=== PATIENT | female | born 1955 | race American Indian/Alaskan Native ===

== ENCOUNTER 2016-06-07 06:01 | Day surgery (SDC) | payer OTHER ==
[2016-06-07] MEDS ORDERED: ECOTRIN PO ONE (06:24)
[2016-06-07 06:58] LABS: Basophils % (Auto) 0.4 % (0.0-1.8); Eosinophils % (Auto) 0.7 % (0.0-4.3); Hematocrit 40.1 % (30.3-42.9); Hemoglobin 13.3 gm/dl (10.1-14.3); Mean Corpuscular HGB Conc 33 % (30-34); Mean Corpuscular Hemoglobin 30 pg (28-32); Mean Corpuscular Volume 91 fl (79-97); Platelet Count 119 K/mm3 (140-440); Red Blood Count 4.39 M/mm3 (3.65-5.03); Red Cell Distribution Width 14.8 % (13.2-15.2); White Blood Count 4.5 K/mm3 (4.5-11.0)
[2016-06-07] MEDS ORDERED: NACL 0.9% 500 ML 500 ML IV SCH (07:00)
[2016-06-07 07:08] LABS: Anion Gap 17 mmol/L; BUN/Creatinine Ratio 18.57; Blood Urea Nitrogen 13 mg/dL (7-17); Calcium 9.1 mg/dL (8.4-10.2); Carbon Dioxide 24 mmol/L (22-30); Chloride 99.9 mmol/L (98-107); Glucose 96 mg/dL (65-100); INR 1.05 (0.87-1.13); Potassium 4.3 mmol/L (3.6-5.0); Sodium 137 mmol/L (137-145)
[2016-06-07] MEDS ORDERED: HEPARIN/NS 5000 UNIT/500ML(CATH LAB) 1,500 ML IR ONE (09:09)
[2016-06-07] MEDS ORDERED: NITROGLYCERIN SYRINGE 3 ML ONE (09:10)
[2016-06-07] MEDS: SUBLIMAZE ONE ×2 (09:39→09:55)
[2016-06-07] MEDS: VERSED ONE ×2 (09:40→09:55)
[2016-06-07] MEDS: HEPARIN 10,000 UNITS/10 ML ONE ×2 (09:41→10:14)
[2016-06-07] MEDS: XYLOCAINE 2% INFILTRATI ONE ×2 (09:41→10:14)
[2016-06-07] MEDS: CALAN ONE ×2 (09:41→10:14)
[2016-06-07] MEDS ORDERED: NACL 0.9% 500 ML 500 ML ONE (10:45)
--- NOTE | 2016-06-07 11:01 | Short Stay Summary ---
Short Stay Documentation Date of service: 06/07/16 - History H&P: obtained from office - Allergies and Medications Current Medications: Allergies No Known Allergies Allergy (Verified 02/19/16 06:31) Home Medications Medication Instructions Recorded Confirmed Last Taken Type Furosemide [Lasix] 20 mg PO QDAY #30 tablet 02/19/16 06/07/16 Unknown Rx Lisinopril [Zestril TAB] 5 mg PO QDAY #31 tablet 02/19/16 06/07/16 06/06/16 Rx Aspirin [Aspirin TAB] 325 mg PO ONCE 06/07/16 06/07/16 06/06/16 History Carvedilol [Coreg] 3.125 mg PO BID 06/07/16 06/07/16 06/06/16 History Active Medications Sodium Chloride (Nacl 0.9% 500 Ml) 500 mls @ 50 mls/hr IV DIRECT BLANCA Stop: 06/07/16 16:59 Last Admin: 06/07/16 06:51 Dose: 50 mls/hr - Physical exam General appearance: no acute distress Integumentary: no rash HEENT: Atraumatic Lungs: Clear to auscultation Breasts: deferred Heart: Regular rate, Murmur Gastrointestinal: normal Female Genitourinary: deferred Rectal Exam: deferred Extremities: no ischemia Neurological: Normal gait - Brief post op/procedure progress note Date of procedure: 06/07/16 Pre-op diagnosis: Severe MR Post-op diagnosis: same Procedure: LHC, RHC, LV gram Anesthesia: MAC Findings: Severe MR and MS Surgeon: ALVIN LIM Estimated blood loss: none Pathology: none Condition: stable - Hospital course Hospital course: Uneventful - Disposition Condition at discharge: Good Disposition: DISCHARGED TO HOME OR SELFCARE Short Stay Discharge Plan Activity: advance as tolerated Weight Bearing Status: Partial Weight Bearing Diet: low fat, low cholesterol, low salt Follow up with: AMARILIS BAE MD [Primary Care Provider] - 7 Days
--- NOTE | 2016-06-07 12:36 | Cardiac Catherization Report ---
LEFT AND RIGHT HEART CATHETERIZATION INDICATION FOR THE PROCEDURE: Severe mitral regurgitation and moderate mitral stenosis. ORDERING PHYSICIAN: SUAD PAL MD PROCEDURES PERFORMED: 1. Selective left and right coronary angiography. 2. Left ventriculography. 3. Right heart catheterization with hemodynamic measurement oxygen saturation run. DESCRIPTION OF PROCEDURE: After obtaining written consent and after documenting a good Mick test in the right extremity, the patient was draped using sterile technique. A 2% lidocaine was injected into the right wrist. A 5-Monegasque vascular sheath was inserted into the right radial artery. A 6-Monegasque vascular sheath was inserted into the right antecubital fossa at the site of a previous intravenous catheter insertion. A 5-Monegasque [place]-Jimena catheter was used to measure right-sided hemodynamics. A 5-Monegasque pigtail catheter was used to perform a left ventriculogram and measured simultaneously the gradient between the pulmonary capillary wedge pressure and the left ventricular end-diastolic pressure. A 5-Monegasque Wilmot catheter was used to selectively engage the left coronary artery. A 5-Monegasque JR4 catheter was used to selectively engage the right coronary artery. No complications occurred during the procedure. Hemostasis was achieved at the end of the procedure using manual pressure. SPECIMEN REMOVED: None. ESTIMATED BLOOD LOSS: Minimal. FINDINGS: 1. The mean pulmonary capillary wedge pressure was 16 mmHg. 2. The mean pulmonary artery pressure was 22 mmHg. The pulmonary artery systolic pressure was 30 mmHg with a pulmonary artery diastolic pressure of 12 mmHg. The left ventricular end-diastolic pressure was 12 mmHg. The mean gradient across the pulmonary capillary wedge pressure and the mean gradient between the pulmonary capillary wedge pressure and the left ventricular end-diastolic pressure was 16.6 mmHg with a mitral valve area calculated at 1.7 cm2. 3. The right ventricular systolic pressure was 49 mmHg with a right ventricular end-diastolic pressure of 12 mmHg. 4. The mean right arterial pressure was 8 mmHg. 5. The Carroll cardiac output was 5.73 L per minute with a cardiac index of 3.06 L per minute per meter square. 6. The right ventricular saturation was 58%. 7. The right atrial saturation was 61%. 8. The pulmonary artery saturation was 62%. 9. The superior vena cava saturation was 68%. 10. The left ventricular saturation was 85%. CARDIAC STRUCTURES: The left ventricle is normal in size and systolic function, the left ventricular ejection fraction is estimated at 60%. There is evidence of severe mitral regurgitation noted on the left ventriculogram. CORONARY ANATOMY: 1. This is a right dominant circulation. 2. The left main is angiographically normal. 3. The LAD is angiographically normal. 4. The left circumflex artery is angiographically normal. 5. The right coronary artery is angiographically normal. IMPRESSION: 1. Angiographically normal coronary arteries. 2. Normal left ventricular size and systolic function. 3. Severe mitral regurgitation. 4. Evidence of severe mitral stenosis by gradient across the pulmonary capillary wedge pressure and the left ventricular end-diastolic pressure. The mean gradient was measured at 16.6 mmHg with a mitral valve area of 1.27 cm2. 5. There is a mild gradient between the right ventricular systolic pressure and a pulmonary artery systolic pressure ranging between 15 to 19 mmHg. 6. There is normal cardiac output and cardiac index. 7. There is no evidence of an intracardiac shunt. RECOMMENDATIONS: Proceed with mitral valve repair or replacement. [facility]# [id number] PATO/SEVERINO
[2016-06-07 13:22] VITALS: BP 133/78
== END 2016-06-07 13:45 | disposition home or self-care (01) ==
LOC: OPU 06:01
PROVIDERS: ATTEND Internal Medicine
DX: I05.2 Rheumatic mitral stenosis with insufficiency (principal); Z79.01 Long term (current) use of anticoagulants
CPT/HCPCS: 36415; 80048; 85025; 85610; 85730; 93005; 93010; 93460; C1769; C1887; C1894; J1644; J2250; J3010; J7040; Q9967

== ENCOUNTER 2018-09-04 11:13 | Emergency (ER) | payer OTHER ==
[2018-09-04 11:34] VITALS: BP 159/99
--- NOTE | 2018-09-04 11:35 | Event Note ---
ED Screening Note ED Screening Note: states she had lab drawn at her heart clinic and was advised to be seen in the ED for hyperglycemia never had high blood sugar before states that she has had increased thirst and dry mouth no CP or SOB no N/V/D PSHx CABG former smoker, quit 2 years ago former drinker, quit 2 years ago This initial assessment/diagnostic orders/clinical plan/treatment(s) is/are subject to change based on patients health status, clinical progression and re- assessment by fellow clinical providers in the ED. Further treatment and workup at subsequent clinical providers discretion. Patient/guardian urged not to elope from the ED as their condition may be serious if not clinically assessed and managed. Initial orders include: labs, UA
[2018-09-04 12:11] LABS: Basophils % (Auto) 0.6 % (0.0-1.8); Hematocrit 40.4 % (30.3-42.9); Hemoglobin 13.3 gm/dl (10.1-14.3); Lymphocytes # (Auto) 1.1 K/mm3 (1.2-5.4); Lymphocytes % (Auto) 41.4 % (13.4-35.0); Mean Corpuscular HGB Conc 33 % (30-34); Mean Corpuscular Volume 89 fl (79-97); Monocytes # (Auto) 0.3 K/mm3 (0.0-0.8); Monocytes % (Auto) 11.9 % (0.0-7.3); Platelet Count 118 K/mm3 (140-440); Red Blood Count 4.51 M/mm3 (3.65-5.03); Red Cell Distribution Width 14.9 % (13.2-15.2)
[2018-09-04 12:36] LABS: Albumin 3.8 g/dL (3.9-5); BUN/Creatinine Ratio 10; Blood Urea Nitrogen 7 mg/dL (7-17); Calcium 8.8 mg/dL (8.4-10.2); Hemolysis Index 96
[2018-09-04 13:03] LABS: Alanine Aminotransferase 18 units/L (7-56)
--- NOTE | 2018-09-04 14:39 | Emergency Department Report ---
ED General Adult HPI - General Chief complaint: Hyperglycemia Stated complaint: DR MATIAS/HIGH DIABETIC BLOOD LEVEL Time Seen by Provider: 09/04/18 11:32 Source: patient Mode of arrival: Ambulatory Limitations: No Limitations - History of Present Illness Initial comments: is a 62 yo female with hx of CAD s/p CABG, HTN who presents with elevated blood sugar on routine labs obtained by esl instructor. Yesterday she had blood draw routine at esl instructor's office. Her blood sugar was greater than 400. It was a nonfasting level. The blood draw occurred in the evening after eating a meAL. No previous history of diabetes. She has a PCP in [place]. She has been thirsty. Otherwise no symptoms. -: Gradual, unknown Consistency: constant Improves with: none Worsens with: none Associated Symptoms: other (thirst) - Related Data Home Medications Medication Instructions Recorded Confirmed Last Taken Aspirin 325 mg PO ONCE 06/07/16 06/07/16 06/06/16 Carvedilol [Coreg] 3.125 mg PO BID 06/07/16 06/07/16 06/06/16 Previous Rx's Medication Instructions Recorded Last Taken Type Furosemide [Lasix TAB] 20 mg PO QDAY #30 tablet 02/19/16 Unknown Rx Lisinopril [Zestril TAB] 5 mg PO QDAY #31 tablet 02/19/16 06/06/16 Rx metFORMIN [Glucophage] 500 mg PO BID 30 Days #60 tablet 09/04/18 Unknown Rx Allergies Allergy/AdvReac Type Severity Reaction Status Date / Time No Known Allergies Allergy Verified 09/04/18 11:15 ED Review of Systems ROS: Stated complaint: DR MATIAS/HIGH DIABETIC BLOOD LEVEL Other details as noted in HPI Comment: All other systems reviewed and negative Constitutional: denies: fever, malaise Respiratory: denies: cough Cardiovascular: denies: chest pain Endocrine: increased thirst ED Past Medical Hx - Past Medical History Previous Medical History?: Yes Hx Hypertension: Yes Hx Heart Attack/AMI: No Hx Congestive Heart Failure: Yes Hx Diabetes: No - Surgical History Hx Pacemaker: No Hx Cholecystectomy: Yes Additional Surgical History: left foot surgery ,HYSTERECTOMY - Social History Smoking Status: Former Smoker Substance Use Type: None - Medications Home Medications: Home Medications Medication Instructions Recorded Confirmed Last Taken Type Furosemide [Lasix TAB] 20 mg PO QDAY #30 tablet 02/19/16 06/07/16 Unknown Rx Lisinopril [Zestril TAB] 5 mg PO QDAY #31 tablet 02/19/16 06/07/16 06/06/16 Rx Aspirin 325 mg PO ONCE 06/07/16 06/07/16 06/06/16 History Carvedilol [Coreg] 3.125 mg PO BID 06/07/16 06/07/16 06/06/16 History metFORMIN [Glucophage] 500 mg PO BID 30 Days #60 tablet 09/04/18 Unknown Rx ED Physical Exam - General Limitations: No Limitations General appearance: alert, in no apparent distress - Head Head exam: Present: atraumatic, normocephalic - Eye Eye exam: Present: normal appearance - ENT ENT exam: Present: mucous membranes moist - Neck Neck exam: Present: normal inspection, full ROM - Respiratory Respiratory exam: Present: normal lung sounds bilaterally. Absent: respiratory distress, wheezes - Cardiovascular Cardiovascular Exam: Present: regular rate, normal rhythm, normal heart sounds. Absent: systolic murmur, diastolic murmur, rubs, gallop - GI/Abdominal GI/Abdominal exam: Present: soft, normal bowel sounds. Absent: distended, tenderness, guarding, rebound - Extremities Exam Extremities exam: Present: normal inspection - Back Exam Back exam: Present: normal inspection - Neurological Exam Neurological exam: Present: alert, oriented X3 - Psychiatric Psychiatric exam: Present: normal affect, normal mood - Skin Skin exam: Present: warm, dry, intact, normal color. Absent: rash ED Course Vital Signs 09/04/18 11:33 Temperature 97.5 F L Pulse Rate 119 H Respiratory 18 Rate Blood Pressure 159/99 O2 Sat by Pulse 98 Oximetry ED Medical Decision Making - Lab Data Result diagrams: 09/04/18 11:52 09/04/18 11:52 - Medical Decision Making Mrs. Alaniz presents with new onset diabetes. She was given metformin. She was given a referral outpatient physician. She stated that she no longer wanted to travel to [place] or primary care. Critical care attestation.: If time is entered above; I have spent that time in minutes in the direct care of this critically ill patient, excluding procedure time. ED Disposition Clinical Impression: New onset type 2 diabetes mellitus, Acute hyperglycemia Disposition: DC-01 TO HOME OR SELFCARE Is pt being admited?: No Does the pt Need Aspirin: No Condition: Stable Instructions: Diabetes Mellitus Type 2 in Adults (ED) Prescriptions: metFORMIN [Glucophage] 500 mg PO BID 30 Days #60 tablet Referrals: BOYD WRIGHT MD [Staff Physician] - 3-5 Days CINTIA HARRIS MD [Staff Physician] - 3-5 Days JIGAR GONZALEZ JR, MD [Staff Physician] - 3-5 Days Forms: Work/School Release Form(ED)
== END 2018-09-04 14:57 | disposition home or self-care (01) ==
LOC: ED 11:13
DX: E11.65 Type 2 diabetes mellitus with hyperglycemia (principal); I11.0 Hypertensive heart disease with heart failure; I50.9 Heart failure, unspecified; Z90.49 Acquired absence of other specified parts of digestive tract; Z98.890 Other specified postprocedural states; Z90.710 Acquired absence of both cervix and uterus; Z87.891 Personal history of nicotine dependence; Z79.82 Long term (current) use of aspirin; Z79.899 Other long term (current) drug therapy
CPT/HCPCS: 36415; 80053; 82962; 85025; 99283

== ENCOUNTER 2019-03-04 16:31 | Emergency (ER) | payer OTHER ==
--- NOTE | 2019-03-04 17:18 | Event Note ---
ED Screening Note ED Screening Note: SENT BY FOR INC COUMADIN PT KEEPS REFERENCING HER BLOOD GLUCOSE BUT SHE HAS PAPER WORK IN HER PURSE STATE S INR IS 9 PT NEEDS EDUCATED NO BLEEDING TO MAIN COUMADIN---2 VALVES- GOAL 2.5-3.5 This initial assessment/diagnostic orders/clinical plan/treatment(s) is/are subject to change based on patients health status, clinical progression and re- assessment by fellow clinical providers in the ED. Further treatment and workup at subsequent clinical providers discretion. Patient/guardian urged not to elope from the ED as their condition may be serious if not clinically assessed and managed. Initial orders include: LABS UA WILL NEED ADMITTED ?VITK/FFP OR DRIFT
[2019-03-04 17:50] LABS: Basophils % (Auto) 0.6 % (0.0-1.8); Eosinophils % (Auto) 1.2 % (0.0-4.3); Hematocrit 37.2 % (30.3-42.9); Hemoglobin 12.3 gm/dl (10.1-14.3); Lymphocytes # (Auto) 1.7 K/mm3 (1.2-5.4); Lymphocytes % (Auto) 39.9 % (13.4-35.0); Mean Corpuscular HGB Conc 33 % (30-34); Mean Corpuscular Volume 85 fl (79-97); Monocytes # (Auto) 0.4 K/mm3 (0.0-0.8); Monocytes % (Auto) 8.9 % (0.0-7.3); Platelet Count 142 K/mm3 (140-440); Red Blood Count 4.38 M/mm3 (3.65-5.03); Red Cell Distribution Width 15.1 % (13.2-15.2)
[2019-03-04 18:08] LABS: Alanine Aminotransferase 14 units/L (7-56); Albumin 4.2 g/dL (3.9-5); BUN/Creatinine Ratio 19; Blood Urea Nitrogen 15 mg/dL (7-17); Calcium 9.3 mg/dL (8.4-10.2); Hemolysis Index 10
--- NOTE | 2019-03-04 18:11 | Emergency Department Report ---
ED General Adult HPI - General Chief complaint: Medical Clearance Stated complaint: ABNORMAL LABS Time Seen by Provider: 03/04/19 17:17 Source: patient Mode of arrival: Ambulatory Limitations: No Limitations - History of Present Illness Initial comments: Patient is a 63-year-old female presents emergency room with complaints of abnormal labs. She states that she went to her [employer]'s office Dr. Bustamante at [facility] to have her Coumadin levels drawn. It appears that her INR level was 8.0 at the [employer]'s office. She was advised to be seen in the emergency Department due to her levels being too high. She denies any symptoms at all. She denies any bleeding. She denies any chest pain, shortness of breath, palpitations, hematochezia, melena, hematemesis. She states that she takes Coumadin twice a day but does not know how much she takes. She states that she has a history of a flutter and had open heart surgery in to replace one of her valves with a pig valve. - Related Data Home Medications Medication Instructions Recorded Confirmed Last Taken Aspirin 325 mg PO ONCE 06/07/16 06/07/16 06/06/16 carvediloL [Coreg] 3.125 mg PO BID 06/07/16 06/07/16 06/06/16 Previous Rx's Medication Instructions Recorded Last Taken Type Furosemide [Lasix TAB] 20 mg PO QDAY #30 tablet 02/19/16 Unknown Rx lisinopriL [Zestril TAB] 5 mg PO QDAY #31 tablet 02/19/16 06/06/16 Rx metFORMIN [Glucophage] 500 mg PO BID 30 Days #60 tablet 09/04/18 Unknown Rx Allergies Allergy/AdvReac Type Severity Reaction Status Date / Time No Known Allergies Allergy Verified 09/04/18 11:15 ED Review of Systems ROS: Stated complaint: ABNORMAL LABS Other details as noted in HPI Comment: All other systems reviewed and negative ED Past Medical Hx - Past Medical History Hx Hypertension: Yes Hx Heart Attack/AMI: No Hx Congestive Heart Failure: Yes Hx Diabetes: No - Surgical History Hx Pacemaker: No Hx Cholecystectomy: Yes Additional Surgical History: left foot surgery ,HYSTERECTOMY - Social History Smoking Status: Never Smoker Substance Use Type: None - Medications Home Medications: Home Medications Medication Instructions Recorded Confirmed Last Taken Type Furosemide [Lasix TAB] 20 mg PO QDAY #30 tablet 02/19/16 06/07/16 Unknown Rx lisinopriL [Zestril TAB] 5 mg PO QDAY #31 tablet 02/19/16 06/07/16 06/06/16 Rx Aspirin 325 mg PO ONCE 06/07/16 06/07/16 06/06/16 History carvediloL [Coreg] 3.125 mg PO BID 06/07/16 06/07/16 06/06/16 History metFORMIN [Glucophage] 500 mg PO BID 30 Days #60 tablet 09/04/18 Unknown Rx ED Physical Exam - General Limitations: No Limitations General appearance: alert, in no apparent distress - Head Head exam: Present: atraumatic, normocephalic - Eye Eye exam: Present: normal appearance - ENT ENT exam: Present: mucous membranes moist - Respiratory Respiratory exam: Present: normal lung sounds bilaterally. Absent: respiratory distress, wheezes, rales, rhonchi, stridor, chest wall tenderness, accessory muscle use, decreased breath sounds, prolonged expiratory - Cardiovascular Cardiovascular Exam: Present: regular rate, normal rhythm, normal heart sounds. Absent: systolic murmur, diastolic murmur, rubs, gallop - Neurological Exam Neurological exam: Present: alert, oriented X3 - Psychiatric Psychiatric exam: Present: normal affect, normal mood - Skin Skin exam: Present: warm, dry, intact ED Course Vital Signs 03/04/19 03/04/19 17:01 18:30 Temperature 98.6 F Pulse Rate 77 Respiratory 17 17 Rate Blood Pressure 183/96 Blood Pressure 179/97 [Left] O2 Sat by Pulse 97 97 Oximetry ED Medical Decision Making - Lab Data Result diagrams: 03/04/19 17:31 03/04/19 17:39 Lab Results 03/04/19 03/04/19 03/04/19 Range/Units 17:31 17:39 17:39 WBC 4.2 L (4.5-11.0) K/mm3 RBC 4.38 (3.65-5.03) M/mm3 Hgb 12.3 (10.1-14.3) gm/dl Hct 37.2 (30.3-42.9) % MCV 85 (79-97) fl MCH 28 (28-32) pg MCHC 33 (30-34) % RDW 15.1 (13.2-15.2) % Plt Count 142 (140-440) K/mm3 Lymph % (Auto) 39.9 H (13.4-35.0) % Ford % (Auto) 8.9 H (0.0-7.3) % Eos % (Auto) 1.2 (0.0-4.3) % Baso % (Auto) 0.6 (0.0-1.8) % Lymph # 1.7 (1.2-5.4) K/mm3 Ford # 0.4 (0.0-0.8) K/mm3 Eos # 0.0 (0.0-0.4) K/mm3 Baso # 0.0 (0.0-0.1) K/mm3 Seg Neutrophils % 49.4 (40.0-70.0) % Seg Neutrophils # 2.1 (1.8-7.7) K/mm3 PT 56.8 H (12.2-14.9) Sec. INR 6.91 H* (0.87-1.13) APTT 107.4 H* (24.2-36.6) Sec. Sodium 138 (137-145) mmol/L Potassium 3.8 (3.6-5.0) mmol/L Chloride 100.4 (98-107) mmol/L Carbon Dioxide 24 (22-30) mmol/L Anion Gap 17 mmol/L BUN 15 (7-17) mg/dL Creatinine 0.8 (0.7-1.2) mg/dL Estimated GFR > 60 ml/min BUN/Creatinine Ratio 19 % Glucose 109 H (65-100) mg/dL Calcium 9.3 (8.4-10.2) mg/dL Total Bilirubin 0.30 (0.1-1.2) mg/dL AST 19 (5-40) units/L ALT 14 (7-56) units/L Alkaline Phosphatase 71 (35-129) units/L Total Protein 7.5 (6.3-8.2) g/dL Albumin 4.2 (3.9-5) g/dL Albumin/Globulin Ratio 1.3 % - Medical Decision Making Patient is a 63-year-old female presents emergency room with complaints of abnormal labs. She states that she went to her [employer] cutter's office Dr. Bustamante at [facility] to have her Coumadin levels drawn. It appears that her INR level was 8.0 at the [employer]'s office. She was advised to be seen in the emergency Department due to her levels being too high. She denies any symptoms at all. She denies any bleeding. She denies any chest pain, shortness of breath, palpitations, hematochezia, melena, hematemesis. She states that she takes Coumadin twice a day but does not know how much she takes. She states that she has a history of a flutter and had open heart surgery in 2017 to replace one of her valves with a pig valve. VSS. given that pt is not having any symptoms/no bleeding no need for vitamin K at this time. INR is 6.91. discussed case with Dr. Benny Cook who recommended having pt hold her coumadin for two days and have her levels retested at her [employer] office. pt given strict fall precautions. advised pt and pts daughter, your coumadin levels were too high today. please do not take any coumadin on friday or friday. may resume taking your coumadin on friday and go to your doctor on friday (03/08/2019) to have your levels retested and to have your medication dose changed. continue taking your other medications. it is very important to avoid falls, to remove area rugs, to be careful when you use the bathroom at night. if you fall or cut yourself return to the emergency room immediately. return to the emergency room for any new or worsening symptoms. Critical care attestation.: If time is entered above; I have spent that time in minutes in the direct care of this critically ill patient, excluding procedure time. ED Disposition Clinical Impression: Supratherapeutic INR Disposition: DC-01 TO HOME OR SELFCARE Is pt being admited?: No Does the pt Need Aspirin: No Condition: Stable Additional Instructions: your coumadin levels were too high today. please do not take any coumadin on friday or friday. may resume taking your coumadin on friday and go to your doctor on friday (03/08/2019) to have your levels retested and to have your medication dose changed. continue taking your other medications. it is very important to avoid falls, to remove area rugs, to be careful when you use the bathroom at night. if you fall or cut yourself return to the emergency room immediately. return to the emergency room for any new or worsening symptoms. [facility] - 2-3 Days Forms: Work/School Release Form(ED) Time of Disposition: 18:46 Print Language: MOLDOVAN
[2019-03-04 18:26] LABS: INR 6.91 (0.87-1.13); Partial Thromboplastin Time 107.4 Sec. (24.2-36.6)
[2019-03-04 18:52] VITALS: BP 179/97
== END 2019-03-04 19:02 | disposition home or self-care (01) ==
LOC: ED 16:31
DX: R79.1 Abnormal coagulation profile (principal); I11.0 Hypertensive heart disease with heart failure; I50.9 Heart failure, unspecified; Z90.710 Acquired absence of both cervix and uterus; Z98.890 Other specified postprocedural states; Z79.899 Other long term (current) drug therapy
CPT/HCPCS: 36415; 80053; 85025; 85610; 85730

== ENCOUNTER 2019-03-05 16:45 | Emergency (ER) | payer OTHER ==
[2019-03-05 18:39] VITALS: BP 155/85
--- NOTE | 2019-03-05 18:41 | Event Note ---
ED Screening Note Date of service: 03/05/19 Time: 18:37 ED Screening Note: 63 y/o female comes in for blood in urine. Patient was seen yesterday for supratherapetic INR. Was told to hold Warfarin for next 3 day. This initial assessment/diagnostic orders/clinical plan/treatment(s) is/are subj ect to change based on patients health status, clinical progression and re- assessment by fellow clinical providers in the ED. Further treatment and workup at subsequent clinical providers discretion. Patient/guardian urged not to elope from the ED as their condition may be serious if not clinically assessed and managed. Initial orders include:
[2019-03-05 19:27] LABS: Basophils % (Auto) 0.6 % (0.0-1.8); Eosinophils % (Auto) 0.6 % (0.0-4.3); Hematocrit 38.7 % (30.3-42.9); Hemoglobin 12.8 gm/dl (10.1-14.3); Lymphocytes # (Auto) 1.4 K/mm3 (1.2-5.4); Lymphocytes % (Auto) 28.3 % (13.4-35.0); Mean Corpuscular HGB Conc 33 % (30-34); Mean Corpuscular Volume 85 fl (79-97); Monocytes # (Auto) 0.5 K/mm3 (0.0-0.8); Monocytes % (Auto) 9.6 % (0.0-7.3); Platelet Count 155 K/mm3 (140-440); Red Blood Count 4.56 M/mm3 (3.65-5.03); Red Cell Distribution Width 15.3 % (13.2-15.2)
[2019-03-05 19:38] LABS: INR 4.07 (0.87-1.13)
[2019-03-05 19:39] LABS: Partial Thromboplastin Time 57.8 Sec. (24.2-36.6)
[2019-03-05 19:46] LABS: Bacteria,Urine 2+ /HPF (Negative); Bilirubin,Urine NEG (Negative); Blood,Urine LG (Negative); Color,Urine Amber (Yellow); Mucus,Urine FEW /HPF; Urobilinogen,Urine < 2.0 mg/dL (<2.0)
[2019-03-05 19:52] LABS: Alanine Aminotransferase 13 units/L (7-56); Albumin 4.3 g/dL (3.9-5); BUN/Creatinine Ratio 15; Blood Urea Nitrogen 12 mg/dL (7-17); Calcium 9.6 mg/dL (8.4-10.2); Hemolysis Index 9
[2019-03-05 19:55] LABS: RBC,Urine > 182.0 /HPF (0.0-6.0)
--- NOTE | 2019-03-05 20:36 | Emergency Department Report ---
ED General Adult HPI - General Chief complaint: Urogenital-Female Stated complaint: BLOOD IN URINE/TOLD TO RETURN/ Time Seen by Provider: 03/05/19 18:36 Source: patient Mode of arrival: Wheelchair Limitations: No Limitations - History of Present Illness Initial comments: Patient is a 63-year-old -[place] female with a history of hypertension and atrial flutter, and status post CABG and cardiac valve replacement in 2017, and is currently under the care of the biodiesel operations manager Dr. Bustamante, and is currently on Coumadin and presented to the ED with complaint of acute onset hematuria. Patient was initially evaluated by her biodiesel operations manager 24 hours ago and at that time INR level was elevated to 8 according to the patient and family. Patient was then reevaluated in the ED 24 hours ago and repeat lab tests showed INR of 6.91, PT of 56.8 and APTT of 107.4. Patient was then advised to stop taking Coumadin for at least 3 days and follow-up with the biodiesel operations manager office for further recheck of her INR level. Patient was otherwise advised to return to the ED if she develops hematuria, hematochezia, nosebleed or any formal bleeding. Patient therefore returned to the ED today with complaint of period was also hematuria intermittently for the last 12+. Patient however denies any hemoptysis, chest pain, shortness of breath, dizziness, abdominal pain, hematochezia, hematemesis or fever and chills. MD Complaint: Hematuria; abnormal INR, on coumadin -: Sudden, days(s) (2) Radiation: non-radiation Consistency: intermittent Improves with: none Worsens with: none Associated Symptoms: denies other symptoms. denies: confusion, chest pain, cough, diaphoresis, headaches, loss of appetite, malaise, nausea/vomiting, rash, shortness of breath, syncope, weakness Treatments Prior to Arrival: none - Related Data Home Medications Medication Instructions Recorded Confirmed Last Taken Aspirin 325 mg PO ONCE 06/07/16 06/07/16 06/06/16 carvediloL [Coreg] 3.125 mg PO BID 06/07/16 06/07/16 06/06/16 Previous Rx's Medication Instructions Recorded Last Taken Type Furosemide [Lasix TAB] 20 mg PO QDAY #30 tablet 02/19/16 Unknown Rx lisinopriL [Zestril TAB] 5 mg PO QDAY #31 tablet 02/19/16 06/06/16 Rx metFORMIN [Glucophage] 500 mg PO BID 30 Days #60 tablet 09/04/18 Unknown Rx cephALEXin [Keflex] 500 mg PO Q8HR #30 cap 03/05/19 Unknown Rx Allergies Allergy/AdvReac Type Severity Reaction Status Date / Time No Known Allergies Allergy Verified 09/04/18 11:15 ED Review of Systems ROS: Stated complaint: BLOOD IN URINE/TOLD TO RETURN/ Other details as noted in HPI Constitutional: denies: chills, fever Eyes: denies: eye pain, eye discharge, vision change ENT: denies: ear pain, throat pain Respiratory: denies: cough, shortness of breath, wheezing Cardiovascular: denies: chest pain, palpitations Endocrine: no symptoms reported Gastrointestinal: denies: abdominal pain, nausea, diarrhea Genitourinary: hematuria. denies: urgency, dysuria, discharge Musculoskeletal: denies: back pain, joint swelling, arthralgia Skin: denies: rash, lesions Neurological: denies: headache, weakness, paresthesias Psychiatric: denies: anxiety, depression Hematological/Lymphatic: denies: easy bleeding, easy bruising ED Past Medical Hx - Past Medical History Hx Hypertension: Yes Hx Heart Attack/AMI: No Hx Congestive Heart Failure: Yes Hx Diabetes: No - Surgical History Hx Pacemaker: No Hx Cholecystectomy: Yes Additional Surgical History: left foot surgery ,HYSTERECTOMY - Social History Smoking Status: Never Smoker Substance Use Type: None - Medications Home Medications: Home Medications Medication Instructions Recorded Confirmed Last Taken Type Furosemide [Lasix TAB] 20 mg PO QDAY #30 tablet 02/19/16 06/07/16 Unknown Rx lisinopriL [Zestril TAB] 5 mg PO QDAY #31 tablet 02/19/16 06/07/16 06/06/16 Rx Aspirin 325 mg PO ONCE 06/07/16 06/07/16 06/06/16 History carvediloL [Coreg] 3.125 mg PO BID 06/07/16 06/07/16 06/06/16 History metFORMIN [Glucophage] 500 mg PO BID 30 Days #60 tablet 09/04/18 Unknown Rx cephALEXin [Keflex] 500 mg PO Q8HR #30 cap 03/05/19 Unknown Rx ED Physical Exam - General Limitations: No Limitations General appearance: alert, in no apparent distress - Head Head exam: Present: atraumatic, normocephalic - Eye Eye exam: Present: normal appearance, PERRL, EOMI Pupils: Present: normal accommodation - ENT ENT exam: Present: normal exam, normal orophraynx, mucous membranes moist, TM's normal bilaterally, normal external ear exam - Neck Neck exam: Present: normal inspection, full ROM - Respiratory Respiratory exam: Present: normal lung sounds bilaterally. Absent: respiratory distress, wheezes, rales, decreased breath sounds, prolonged expiratory - Cardiovascular Cardiovascular Exam: Present: regular rate, normal rhythm, normal heart sounds. Absent: systolic murmur, diastolic murmur, rubs, gallop - GI/Abdominal GI/Abdominal exam: Present: soft, normal bowel sounds. Absent: tenderness, guarding - Extremities Exam Extremities exam: Present: normal inspection, full ROM, normal capillary refill - Back Exam Back exam: Present: normal inspection, full ROM. Absent: tenderness, muscle spasm, paraspinal tenderness - Neurological Exam Neurological exam: Present: alert, oriented X3, CN II-XII intact, normal gait, reflexes normal - Psychiatric Psychiatric exam: Present: normal affect, normal mood - Skin Skin exam: Present: warm, dry, intact, normal color. Absent: rash ED Course Vital Signs 03/05/19 18:37 Temperature 97.6 F Pulse Rate 78 Respiratory 18 Rate Blood Pressure 155/85 O2 Sat by Pulse 96 Oximetry ED Medical Decision Making - Lab Data Result diagrams: 03/05/19 19:01 03/05/19 19:01 - Medical Decision Making This is a 63-year-old female with a history of hypertension, atrial flutter and is currently on Coumadin, and status post cardiac valve replacement and CABG in 2017, and presented to the ED with cramping and hematuria and elevated INR level. Patient is currently under the care of the biodiesel operations manager Dr. Bustamante with she had an appointment 24 hours ago and had a high INR level rechecked and it was high. Patient was also reevaluated his ED advised of her biodiesel operations manager visit and her INR level was 6.91 with PTT of 107.4 and PTT of 56.8. Patient was then discharged home and advised to stop taking Coumadin for at least 3 or 4 days and follow-up with the biodiesel operations manager for reevaluation. Patient return to the ED today complaining of hematuria intermittently for the last 12 hours Patient. Repeat lab tests results show INR level or 4.07, PTT level of 57.8 and PTT of 40.5. Hemoccult test was negative. Urinalysis also showed mild urinary tract infection. I discussed the patient's case with the ED attending physician Dr. Ayaz Barnes who agreed with the plan of care to discharge the patient home and have her follow up with her biodiesel operations manager Dr. Bustamante's office in the next 2 days. Patient was also advised to refrain from taking Coumadin and to follow up with her biodiesel operations manager Dr. Bustamante in 2 days' time on 03/08/2019. Patient was advised to return to the ED immediately if symptoms get worse. - Differential Diagnosis UTI; Hematuria; Elevated INR level Critical care attestation.: If time is entered above; I have spent that time in minutes in the direct care of this critically ill patient, excluding procedure time. ED Disposition Clinical Impression: Elevated INR (international normalized ratio), Hematuria due to acute cystitis Disposition: TO HOME OR SELFCARE Is pt being admited?: No Does the pt Need Aspirin: No Condition: Stable Instructions: Urinary Tract Infection in Women (ED), Acute Hematuria (ED), Elevated INR (ED) Additional Instructions: Stop taking Coumadin and follow-up with Dr. Bustamante's office in 2 days, on 03/08/2019 promptly for recheck of her INR level. Return to the ED immediately if symptoms get worse. Prescriptions: cephALEXin [Keflex] 500 mg PO Q8HR #30 cap Referrals: Hugo GONZALES MD [Primary Care Provider] - 3-5 Days Time of Disposition: 22:30 Print Language: [place] ISLAND[place]
== END 2019-03-05 22:37 | disposition home or self-care (01) ==
LOC: ED 16:45
DX: R79.1 Abnormal coagulation profile (principal); N30.01 Acute cystitis with hematuria; I10 Essential (primary) hypertension; I50.9 Heart failure, unspecified; Z90.49 Acquired absence of other specified parts of digestive tract; Z90.710 Acquired absence of both cervix and uterus; Z98.890 Other specified postprocedural states; Z79.899 Other long term (current) drug therapy
CPT/HCPCS: 36415; 80053; 81001; 82271; 85025; 85610; 85730